=== PATIENT | female | born 1965 | race Caucasian/White ===

== ENCOUNTER → 2017-10-29 | Outpatient (CLI) | payer OTHER ==
--- NOTE | 2017-10-29 13:37 | MM ---
Reason for exam: clinical finding. Last mammogram was performed 1 year and 6 months ago. History: Patient had first child at age 32. Benign cyst aspiration of the right breast, 1998. Physical Findings: Nurse Summary: less than 0.5cm nodule in the left breast at 6 o'clock, 3 o'clock and axilla (nurse kp). MG Diagnostic Mammo w CAD ISAC Bilateral CC, MLO, and XCCL view(s) were taken. Prior study comparison: April 24, 2016, bilateral MG diagnostic mammo w CAD ISAC. April 20, 2015, bilateral MG 3d screening mammo w/cad. The breast tissue is heterogeneously dense. This may lower the sensitivity of mammography. Benign appearing bilateral calcifications. Focal asymmetry of the central left breast anterior depth similar to priors exams. These results were verbally communicated with the patient and result sheet given to the patient on 10/29/17. ASSESSMENT: Benign, BI-RAD 2 RECOMMENDATION: Routine screening mammogram of both breasts in 1 year.
--- NOTE | 2017-10-29 13:43 | USB ---
Reason for exam: clinical finding. History: Patient had first child at age 32. Benign cyst aspiration of the right breast, 1998. US Breast LT Let complete breast ultrasound includes all four quadrants, the retroareolar region and axilla. Finding demonstrates a 0.3 x 0.3 x 0.3cm oval, mixed lesion at 2 o'clock for which a 3 month follow up is recommended, a 1.1 x 0.9 x 0.85cm oval, hypoechoic lesion at 3 o'clock for which a biopsy is recommended, appears solid, a 1.3 x 1.0 x 1.1cm oval, cystic, complex, benign lesion at 4 o'clock, a 0.4 x 0.5 x 0.3cm oval, cystic, benign lesion at 4 o'clock, a 0.4 x 0.4 x 0.5cm oval, cystic, benign lesion at 11 o'clock, duct ectasia at the posterior nipple and a 1.9 x 1.5 x 0.9cm node at axillary BB for which a 3 month follow up is recommended, possible inflammatory node. These results were verbally communicated with the patient and result sheet given to the patient on 10/29/17. ASSESSMENT: Suspicious, BI-RAD 4 RECOMMENDATION: Ultrasound core biopsy of the left breast. (3 o'clock) Called Dr. Pickett with mammographic findings and has scheduled an appointment for the patient for 11/21/17 at 3:[address] Richter. Biopsy scheduled for 11/09/17 at 11:30. PRELIMINARY REPORT CALLED AND FAXED TO DR. RICHTER ON 10/29/17. Ultrasound of the left breast in 3 months.
== END ==
LOC: RADMAMWWP 11:02
PROVIDERS: ATTEND Obstetrics & Gynecology
DX: N63.10 Unspecified lump in the right breast, unspecified quadrant (principal); N63.20 Unspecified lump in the left breast, unspecified quadrant; R92.8 Other abnormal and inconclusive findings on diagnostic imaging of breast
CPT/HCPCS: 77066

== ENCOUNTER → 2017-11-05 | Outpatient (CLI) | payer OTHER ==
--- NOTE | 2017-11-05 09:48 | CT ---
EXAMINATION TYPE: CT abdomen w con DATE OF EXAM: 11/05/2017 COMPARISON: Ultrasound 12/14/1714 HISTORY: Upper Abdominal pain. CT DLP: 1004.5 mGycm Automated exposure control for dose reduction was used. TECHNIQUE: Helical acquisition of images was performed from the lung bases through the top of iliac crest to include entire abdomen. CONTRAST: Performed without Oral Contrast and with IV Contrast, patient injected with 125 mL of Isovue 370. FINDINGS: LUNG BASES: Subsegmental changes at the left lung bases most typical of atelectasis or scarring. LIVER/GB: Liver is homogeneous with no evidence of mass. Gallbladder wall is somewhat thickened but t he gallbladder is decompressed which may account for the finding. Tiny gallstone not excluded. PANCREAS: No significant abnormality is seen. SPLEEN: No significant abnormality is seen. ADRENALS: No significant abnormality is seen. KIDNEYS: No significant abnormality is seen. BOWEL: No significant abnormality is seen. LYMPH NODES: No significant abnormality is seen. OSSEOUS STRUCTURES: No significant abnormality is seen. FREE AIR: No free air is visualized. OTHER: Atherosclerotic change of the aorta but no evidence of aneurysm. There is a small fat-containi ng periumbilical hernia. 1.7 cm right ovarian cyst suspected. The final images a slight heterogeneity of the uterine body which could be correlated with ultrasound. IMPRESSION: 1. No definite acute intrathoracic process. Wall thickening the gallbladder likely is related to inco mplete distention but could be correlated with ultrasound as clinically warranted. Previous ultrasoun d 2014 demonstrated a normal-appearing gallbladder. 2. 1.7 cm right ovarian cyst. Finding was also noted on the previous exam of 2015 ultrasound. Uterus is incompletely seen by CT of the abdomen. Slight portion of the uterus demonstrates a heterogeneous pattern centrally which could be correlated with pelvic ultrasound. Previous ultrasound 2015 suggeste d possible uterine fibroid which may account for the finding. 3. Small fat-containing periumbilical hernia with no inflammatory changes.
== END ==
LOC: RADCTMAIN 07:46
PROVIDERS: ATTEND Surgery
DX: K42.0 Umbilical hernia with obstruction, without gangrene (principal); N83.201 Unspecified ovarian cyst, right side; R10.13 Epigastric pain; K83.8 Other specified diseases of biliary tract
CPT/HCPCS: 74160; Q9967

== ENCOUNTER → 2017-11-09 | Day surgery (SDC) | payer OTHER ==
[2017-11-09 11:19] VITALS: RESP 16; BMI 33.3
[2017-11-09 12:46] VITALS: BP 144/76; PULSE 72; TEMP 98.1
--- NOTE | 2017-11-09 15:33 | USB ---
EXAMINATION TYPE: US biopsy breast VAD LT DATE OF EXAM: 11/09/2017 CLINICAL HISTORY: R92.8 abnormal mammogram. TECHNIQUE: Ultrasound guided core biopsy of left breast. COMPARISON: 10/29/2017 FINDINGS: The procedure of ultrasound guided core biopsy was explained to the patient. Benefits, alternatives, and risks were discussed. An informed consent was then obtained. Preprocedural timeout was performed. The patient was placed in supine positioning for imaging and for the procedure. The overlying skin was prepped and draped in usual sterile fashion. Lidocaine buffered with bicarbonate was used as anesthetic into the skin and subcutaneous tissue up to the 1.1 x 0.9 x 0.9 cm oval hypoechoic mass at the 3: 00 position within the left breast. Under ultrasound guidance, a 12-gauge vacuum assisted biopsy gun device was used to obtain 3 core samples. Following this, a coil-shaped biopsy marker was left in lesion well visualized on ultrasound. This mass noted to change in morphology and therefore is favored to represent a complicated cyst. The patient tolerated the procedure well without any immediate complication. The patient was kept in the radiology department for short stay after the procedure and then discharged home in stable condition. IMPRESSION: Successful, uncomplicated ultrasound guided core biopsy of area of a hypoechoic mass measuring 1.1 x 0.8 x 0.9 cm at the 3:00 position within the left breast, which changed morphology on biopsy favoring a complicated cyst, full pathology results to follow. Pathology Results: Benign BREAST, LEFT, ULTRASOUND GUIDED CORE BIOPSY: Cyst wall with inflammation, fibrosis and histocyte reaction consistent with cyst rupture. Background proliferative fibrocystic changes including usual type ductal hyperplasia, cysts and apocrine metaplasia. See note. Recommendation Follow up mammogram of the left breast in 6 months. ANGELO
== END | disposition home or self-care (01) ==
LOC: RADUSWWP 10:17
PROVIDERS: ATTEND Surgery
DX: N60.32 Fibrosclerosis of left breast (principal); N60.82 Other benign mammary dysplasias of left breast; N60.02 Solitary cyst of left breast; Z88.2 Allergy status to sulfonamides; Z91.048 Other nonmedicinal substance allergy status
CPT/HCPCS: 88305; 88342; 19083; A4648; J2001

== ENCOUNTER → 2018-02-11 | Outpatient (CLI) | payer OTHER ==
--- NOTE | 2018-02-11 11:58 | USB ---
Reason for exam: clinical finding. History: Patient had first child at age 32. Benign US biopsy breast VAD LT of the left breast, November 09, 2017. Benign cyst aspiration of the right breast, 1998. Indicated problem(s): palpable abnormality in the left breast. Physical Findings: Nurse Summary: soft, moves (nurse dw). US Breast LT Left complete breast ultrasound includes all four quadrants, the retroareolar region and axilla. Finding demonstrates a 0.8 x 0.8 x 0.7cm cystic cluster at 1 o'clock, a 1.0 x 1.1 x 0.9cm hypoechoic lesion at 3 o'clock versus 1.1 x 0.9 x 0.8cm before biopsy, findings suggest a reaccumulated cyst and a 1.8 x 1.7 x 0.9cm lymph node at the axilla versus 1.9 x 1.5 x 0.9cm previously, echogenic fatty hilum is maintained, possibly inflammatory. Additional follow up cab be performed at the time of the patient's annual exam. No lesion seen at the nurse palpated 6 o'clock area. These results were verbally communicated with the patient and result sheet given to the patient on 02/11/18. ASSESSMENT: Probably benign, BI-RAD 3 RECOMMENDATION: Follow-up diagnostic mammogram of both breasts in 9 months. Back on schedule. Ultrasound of the left breast in 9 months.
== END ==
LOC: RADUSWWP 10:12
PROVIDERS: ATTEND Surgery
DX: R92.8 Other abnormal and inconclusive findings on diagnostic imaging of breast (principal)

== ENCOUNTER → 2018-12-10 | Outpatient (CLI) | payer OTHER ==
--- NOTE | 2018-12-10 09:38 | MM ---
Reason for exam: additional evaluation requested from prior study. Last mammogram was performed 1 year and 1 month ago. History: Patient had first child at age 32. Benign US biopsy breast VAD LT of the left breast, November 09, 2017. Benign cyst aspiration of the right breast, 1998. Physical Findings: Nurse did not find any significant physical abnormalities on exam. MG Diagnostic Mammo w CAD ISAC Bilateral CC and MLO view(s) were taken. Prior study comparison: October 29, 2017, bilateral MG diagnostic mammo w CAD ISAC. April 24, 2016, bilateral MG diagnostic mammo w CAD ISAC. The breast tissue is heterogeneously dense. This may lower the sensitivity of mammography. No significant new findings when compared with previous films. These results were verbally communicated with the patient and result sheet given to the patient on 12/10/18. ASSESSMENT: Benign, BI-RAD 2 RECOMMENDATION: Routine screening mammogram of both breasts in 1 year.
--- NOTE | 2018-12-10 09:42 | USB ---
Reason for exam: additional evaluation requested from prior study. History: Patient had first child at age 32. Benign US biopsy breast VAD LT of the left breast, November 09, 2017. Benign cyst aspiration of the right breast, 1998. US Breast LT Left complete breast ultrasound includes all four quadrants, the retroareolar region and axilla. Finding demonstrates a 0.9 x 0.5 x 0.7cm cystic cluster at 1 o'clock, a 0.7 x 0.7 x 0.6cm cystic lesion at 2 o'clock, a 0.9 x 0.7 x 1.0cm hypoechoic lesion at 3 o'clock and a 0.9 x 0.5 x 0.8cm cystic lesion at 5 o'clock. These results were verbally communicated with the patient and result sheet given to the patient on 12/10/18. ASSESSMENT: Benign, BI-RAD 2 RECOMMENDATION: Routine screening mammogram of both breasts in 1 year.
== END | disposition home or self-care (01) ==
LOC: RADMAMWWP 07:59
PROVIDERS: ATTEND Surgery
DX: R92.8 Other abnormal and inconclusive findings on diagnostic imaging of breast (principal)
CPT/HCPCS: 77066

== ENCOUNTER → 2020-11-22 | Outpatient (CLI) | payer OTHER ==
--- NOTE | 2020-11-23 13:53 | MM ---
Reason for exam: screening (asymptomatic). Last mammogram was performed 1 year and 11 months ago. History: Patient is postmenopausal and had first child at age 32. Benign US biopsy breast VAD LT of the left breast, November 09, 2017. Benign cyst aspiration of the right breast, 1998. Physical Findings: A clinical breast exam by your physician is recommended on an annual basis and results should be correlated with mammographic findings. MG 3D Screening Mammo W/Cad Bilateral CC and MLO view(s) were taken. Prior study comparison: December 10, 2018, bilateral MG diagnostic mammo w CAD ISAC. October 29, 2017, bilateral MG diagnostic mammo w CAD ISAC. The breast tissue is extremely dense which could obscure a lesion on mammography. Stable calcification nodule upper outer right breast. No significant changes when compared with prior studies. ASSESSMENT: Benign, BI-RAD 2 RECOMMENDATION: Routine screening mammogram of both breasts in 1 year.
== END | disposition home or self-care (01) ==
LOC: RADMAMWWP 10:09
PROVIDERS: ATTEND Obstetrics & Gynecology
DX: Z12.31 Encounter for screening mammogram for malignant neoplasm of breast (principal)
CPT/HCPCS: 77063; 77067

== ENCOUNTER → 2021-03-04 | Outpatient (CLI) | payer OTHER ==
--- NOTE | 2021-03-05 05:57 | MR ---
EXAMINATION TYPE: MR ankle RT wo con DATE OF EXAM: 03/04/2021 COMPARISON: None HISTORY: Pain in rt foot, swelling, Achilles tendinitis, hx of spurs removed from calcaneous Multiplanar multiecho imaging of the right ankle without contrast. Achilles tendon is intact plantar fascia is intact. The ankle mortise is anatomic. Collateral ligamen ts are intact. There is intact medial and lateral flexor tendons of the ankle. There is no evidence of a fracture. I see no bony destructive process. There is large calcification anterior to the Achilles tendon at the posterior calcaneus. IMPRESSION: Large Achilles calcaneal spur. No fracture seen. No evidence of ligament or tendon tear.
== END | disposition home or self-care (01) ==
LOC: RADMRIMAIN 07:18
PROVIDERS: ATTEND Podiatrist
DX: M76.61 Achilles tendinitis, right leg (principal); M77.31 Calcaneal spur, right foot; M79.671 Pain in right foot

== ENCOUNTER → 2022-04-10 | Outpatient (CLI) | payer OTHER ==
--- NOTE | 2022-04-11 08:27 | MM ---
Reason for Exam: Screening (asymptomatic). Last mammogram was performed 1 year(s) and 5 month(s) ago. Patient History: Menarche at age 16. First Full-Term at age 32. Late child-bearing (after 30). Postmenopausal. Patient has history of breast feeding. 1998, Benign Cyst Aspiration on the right side. 11/09/2017, Benign Core Biopsy on the left side. Risk Values: Laurel 5 year model risk: 1.8%. NCI Lifetime model risk: 12.0%. Prior Study Comparison: 10/19/2010 Bilateral Diagnostic Mammogram, [facility]. 04/20/2015 Bilateral Screening Mammogram, [facility]. 04/24/2016 Bilateral Diagnostic Mammogram, [facility]. 10/29/2017 Bilateral Diagnostic Mammogram, [facility]. 12/10/2018 Bilateral Diagnostic Mammogram, [facility]. 12/10/2018 Left Diagnostic Ultrasound, [facility]. 11/22/2020 Bilateral Screening Mammogram, [facility]. Tissue Density: The breast tissue is extremely dense which could obscure a lesion on mammography. Findings: Analyzed By CAD. There is no suspicious group of microcalcifications or new suspicious mass in either breast. Stable calcified nodule in the upper outer right breast with additional stable chronic nodularity within the right breast. Biopsy clip within left breast. No significant change from prior exams. Overall Assessment: Benign, BI-RAD 2 Management: Screening Mammogram of both breasts in 1 year. A clinical breast exam by your physician is recommended on an annual basis and results should be correlated with mammographic findings. Electronically signed and approved by: Williams Montana D.O.
== END | disposition home or self-care (01) ==
LOC: RADMAMWWP 12:33
PROVIDERS: ATTEND Internal Medicine Geriatric Medicine
DX: Z12.31 Encounter for screening mammogram for malignant neoplasm of breast (principal); Z78.0 Asymptomatic menopausal state
CPT/HCPCS: 77063; 77067

== ENCOUNTER → 2023-03-22 | Outpatient (CLI) | payer OTHER ==
--- NOTE | 2023-03-22 09:11 | MM ---
Reason for Exam: Clinical finding. Last screening mammogram was performed 11 month(s) ago. Indicated Problems: Pain of the left side (Focal) for 1 Week(s) : axillary region. Patient History: Menarche at age 16. First Full-Term at age 32. Late child-bearing (after 30). Postmenopausal. Patient has history of breast feeding. 1998, Benign Cyst Aspiration on the right side. 11/09/2017, Benign Core Biopsy on the left side. Risk Values: Laurel 5 year model risk: 1.8%. NCI Lifetime model risk: 11.7%. Tissue Density: The breast tissue is heterogeneously dense. This may lower the sensitivity of mammography. Findings: Analyzed By CAD. Stable nodular tissue with patchy clips. No new suspicious masses, calcifications or distortions. Overall Assessment: Incomplete: need additional imaging evaluation, BI-RAD 0 Management: Diagnostic Breast Ultrasound of the left breast. Results were given to the patient verbally at the time of exam. Patient should continue monthly self-breast exams. A clinical breast exam by your physician is recommended on an annual basis. This exam should not preclude additional follow-up of suspicious palpable abnormalities. Note on Laurel scores and lifetime risk: 1. A Laurel score greater than 3% is considered moderate risk. If this is the case, consider specialist referral to assess eligibility for a risk reducing agent. 2. If overall lifetime risk for the development of breast cancer is 20% or higher, the patient may qualify for future screening with alternating mammogram and breast MRI. Electronically signed and approved by: Aris Torres DO
--- NOTE | 2023-03-22 09:56 | USB ---
Reason for Exam: Clinical finding. Patient History: Menarche at age 16. First Full-Term at age 32. Late child-bearing (after 30). Postmenopausal. Patient has history of breast feeding. 1998, Benign Cyst Aspiration on the right side. 11/09/2017, Benign Core Biopsy on the left side. Risk Values: Laurel 5 year model risk: 1.8%. NCI Lifetime model risk: 11.7%. Technique: Method: Targeted. Prior Study Comparison: 12/10/2018 Bilateral Diagnostic Mammogram, [facility]. 11/22/2020 Bilateral Screening Mammogram, [facility]. 04/10/2022 Bilateral MG 3D screening mammo w/cad, [facility]. Findings: The axilla of the left breast was scanned. Technique utilized:US breast axilla LT Image; Ultrasound imaging of: Area of concern region and axilla. No evidence for organizing fluid collection or mass. Overall Assessment: Negative, BI-RAD 1 Management: Screening Mammogram of both breasts in 1 year. A clinical breast exam by your physician is recommended on an annual basis and results should be correlated with mammographic findings. This exam should not preclude additional follow-up of suspicious palpable abnormalities. Results were given to the patient verbally at the time of exam. Electronically signed and approved by: Aris Torres DO
== END | disposition home or self-care (01) ==
LOC: RADMAMWWP 08:44
PROVIDERS: ATTEND Family Medicine
DX: N64.4 Mastodynia (principal); M79.622 Pain in left upper arm; R92.333 Mammographic heterogeneous density, bilateral breasts; Z78.0 Asymptomatic menopausal state
CPT/HCPCS: 77062; 77066

== ENCOUNTER → 2023-06-27 | Outpatient (CLI) | payer OTHER ==
--- NOTE | 2023-06-27 18:34 | CT ---
EXAMINATION TYPE: CT abdomen pelvis wo con CT DLP: 931.9 mGycm, Automated exposure control for dose reduction was used. DATE OF EXAM: 06/27/2023 6:09 PM COMPARISON: 11/05/2017. CLINICAL INDICATION:Female, 57 years old with history of R10.32 LLQ PAIN; LLQ PAIN TECHNIQUE: Axial CT abdomen pelvis wo con;Sagittal and coronal reformats were created on a separate workstation. Contrast used:(none if empty) Oral contrast used: without Oral Contrast (none if empty) FINDINGS: LOWER CHEST: Unremarkable ABDOMEN LIVER: Unremarkable GALLBLADDER AND BILE DUCTS: Unremarkable. PANCREAS: Unremarkable. SPLEEN: Unremarkable. ADRENAL GLANDS: Unremarkable. KIDNEYS AND URETERS: No evidence of hydronephrosis or renal calculus. The ureters are unremarkable. PELVIS BLADDER: Unremarkable REPRODUCTIVE: Unremarkable. ABDOMEN & PELVIS STOMACH AND BOWEL: No evidence of bowel obstruction. The appendix is normal. PERITONEUM/RETROPERITONEUM: No evidence of pneumoperitoneum or free fluid. VASCULATURE: No evidence of aortic aneurysm. MUSCULOSKELETAL: No acute osseous abnormalities LYMPH NODES: No gross evidence for lymphadenopathy. SOFT TISSUE/ABDOMINAL WALL: Fat-containing umbilical hernia. IMPRESSION: No acute process to explain the patient's left lower quadrant pain.
== END | disposition home or self-care (01) ==
LOC: RADCTMAIN 17:20
PROVIDERS: ATTEND Family Medicine
DX: R10.32 Left lower quadrant pain (principal)
CPT/HCPCS: 74176

== ENCOUNTER → 2023-07-09 | Outpatient (CLI) | payer OTHER ==
[2023-07-09 15:48] LABS: Chol/HDL Ratio 7.29 Ratio; LDL Cholesterol,Calculated 204.4 mg/dL (0.0-131.0)
== END | disposition home or self-care (01) ==
LOC: LABWHC1 10:46
PROVIDERS: ATTEND Family Medicine
DX: E78.00 Pure hypercholesterolemia, unspecified (principal)
CPT/HCPCS: 36415; 80061